=== PATIENT | female | born 1995 | race African-American/Black ===

== ENCOUNTER 2017-05-14 22:20 | Emergency (ER) | payer OTHER ==
[~2017-05-14] VITALS: Ht 157.5 cm; Wt 65.8 kg
[2017-05-15] MEDS ORDERED: NAPROSYN500 MG PO (00:15)
== END 2017-05-15 00:36 | disposition home or self-care (01) ==
LOC: ER 22:20
DX: O92.79 Other disorders of lactation (principal); J45.909 Unspecified asthma, uncomplicated